=== PATIENT | female | born 1965 | race African-American/Black ===

== ENCOUNTER 2021-07-21 13:31 | Outpatient (CLI) | payer OTHER, SELFPAY ==
--- NOTE | ~2021-07-21 | CT_ITS ---
EXAMINATION: CT abdomen wo con DATE: 07/21/2021 14:01 INDICATION: Incisional hernia TECHNIQUE: Computed tomography (CT) of the abdomen was performed without intravenous contrast. Automa olga exposure control and iterative reconstruction technique were employed. Exam dose: 306.96 mGy-cm total exam DLP. COMPARISON: None. FINDINGS: Minimal dependent right lower lobe basilar atelectasis, mild infiltrate and/or aspiration p neumonitis. The lung bases are otherwise clear. Trace pericardial fluid. Heart size is within normal limits. The liver, spleen, pancreas, adrenal glands and kidneys are unremarkable. No urinary tract calculus o r hydronephrosis is evident. There is a 10.5 cm AP x 14.2 cm transverse dimension midline soft tissue structure extending from the pelvis into the abdomen, extending slightly above the level of the umbilicus; CT pelvis examination is recommended to more definitively evaluate this soft tissue structure. Normal caliber of the abdominal aorta. No intraperitoneal or retroperitoneal mass lesion or adenopath y is noted otherwise. There is a small fat-containing umbilical hernia. There is a left parasagittal supraumbilical fat-containing hernia measuring approximately 4 cm vertic al and 4 centers transverse dimension, up to 3 cm AP dimension. There is some increased density of th e herniated fat which might represent some adipose tissue inflammation or necrosis. No bowel obstruction or intraperitoneal free air. No suspicious osteolytic or osteoblastic lesions. There are severe degenerative changes at the apophyseal joints at L4-5 and L5-S1 with associated mini mal anterolisthesis at L4-5. Mild degenerative disease at L4-5 and L5-S1. IMPRESSION: 3 x 4 x 4 cm supraumbilical left parasagittal fat-containing hernia; some increased dens ity of the fat may indicate fat inflammation or necrosis Small fat-containing umbilical hernia Large midline soft tissue structure extending from the pelvis to slightly above the umbilicus; CT pel vis examination is recommended for further evaluation Minimal right lower lobe basilar dependent atelectasis, mild infiltrate and/or aspiration pneumonitis Reviewed, dictated and finalized at [facility]. Reviewed, dictated and finalized at [facility]. S DRAPER IMPRESSION: 3 x 4 x 4 cm supraumbilical left parasagittal fat-containing herni a; some increased density of the fat may indicate fat inflammation or necrosis Small fat-containing umbilical hernia Large midline soft tissue structure extending from the pelvis to slightly above the umbilicus; CT pelvis examination is recommended for further evaluation Minimal right lower lobe basilar dependent atelectasis, mild infiltrate and/or aspiration pneumonitis
== END 2021-07-21 13:32 | disposition home or self-care (01) ==
LOC: ANHIMG 13:36
PROVIDERS: Visit Provider Surgery
DX: K43.2 Incisional hernia without obstruction or gangrene (principal); K42.9 Umbilical hernia without obstruction or gangrene; R91.8 Other nonspecific abnormal finding of lung field; J98.11 Atelectasis
CPT/HCPCS: 74150

== ENCOUNTER 2021-09-15 13:36 | Outpatient (CLI) | payer OTHER, SELFPAY ==
--- NOTE | 2021-09-15 13:47 | ECG_ITS ---
Measurements Intervals [place] Rate: 70 P: 55 TX: 184 QRS: 5 QRSD: 76 T: 33 QT: 407 QTc: 441 Interpretive Statements SINUS RHYTHM LEFT ATRIAL ENLARGEMENT [-0.15mV P WAVE IN V1/V2] POSSIBLE LEFT VENTRICULAR HYPERTROPHY [VOLTAGE CRITERIA PLUS LAE OR QRS WIDENING] ABNORMAL ECG NO PREVIOUS ECG AVAILABLE FOR COMPARISON Electronically Signed On 09-15-2021 16:04:10 CDT by Dwayne Villeda M.D.
[2021-09-15 14:06] LABS: Basophils Percent Auto 0.5 % (0.2-1.2); Eosinophils Absolute Auto 0.2 K/mm3 (0-0.3); Eosinophils Percent Auto 2.9 % (0-4.4); Hematocrit 41.9 % (37.0-47.0); Hemoglobin 13.2 g/dL (12.0-15.0); Immature Granulocyte Absolute 0.02 K/mm3 (0.00-0.031); Immature Granulocyte Percent A 0.3 % (0-0.5); Lymphocytes Absolute Auto 2.51 K/mm3 (0.9-3.2); Lymphocytes Percent Auto 40.3 % (18.3-44.2); Mean Corpuscular HGB Conc 31.5 g/dl (32-36); Mean Corpuscular Hemoglobin 30.1 pg (26-34); Mean Corpuscular Volume 95.7 fl (80-100); Mean Platelet Volume 11.6 fl (7.4-10.4); Monocytes Absolute Auto 0.4 K/mm3 (0.1-0.6); Monocytes Percent Auto 6.6 % (2.6-8.5); Neutrophils Absolute Auto 3.1 K/mm3 (1.3-6.7); Neutrophils Percent Auto 49.4 % (45.5-73.1); Platelet Count Result 216 k/mm3 (150-375); Red Blood Count 4.38 M/mm3 (4.2-5.4); Red Cell Distribution Width 14.4 % (11.5-14.5); White Blood Count 6.2 K/mm3 (4.5-10.0)
[2021-09-15 14:18] LABS: Alanine Aminotransferase 12 U/L (4-35); Albumin Level 4.4 g/dL (3.5-5.1); Alkaline Phosphatase 83 U/L (38-126); Anion Gap 7 mmol/L (8-16); Aspartate Amino Transferase 25 U/L (14-36); Bilirubin,Total 0.3 mg/dL (0.2-1.3); Blood Urea Nitrogen 14 mg/dL (7-17); Calcium 9.2 mg/dL (8.4-10.2); Carbon Dioxide 26 mmol/L (22-30); Chloride 108 mmol/L (98-107); Estimated Glomerular Filt Rate > 60; Glucose 98 mg/dL (65-110); Sodium 141 mmol/L (137-145)
== END 2021-09-15 13:37 | disposition home or self-care (01) ==
PROVIDERS: Visit Provider Obstetrics & Gynecology
DX: K43.2 Incisional hernia without obstruction or gangrene (principal); D25.9 Leiomyoma of uterus, unspecified; I10 Essential (primary) hypertension; R94.31 Abnormal electrocardiogram [ECG] [EKG]
CPT/HCPCS: 36415; 80053; 85025; 86850; 86900; 86901; 93005

== ENCOUNTER 2021-09-21 12:06 | Inpatient (IN) | payer OTHER, SELFPAY ==
[2021-09-12 15:13] VITALS: BMI 31.7
--- NOTE | 2021-09-12 15:26 | PC.NURSE ---
Addendum entered by Kenna Wright RN 09/12/21 15:30: [facility] SHOWER MORNING OF SURGERY Original Note: Report to the Outpatient Waiting Room, entrance under the green pavilion located off [facility], at time 6:00 on date 09/21/21. OR Time: 7:30. - You and your visitor will be asked a series of questions to screen for COVID 19 for your protection. - A mask is required within the hospital. One visitor will be allowed to accompany the patient into the hospital. Patients visitor will be instructed to remain with patient at all times or leave the building. We will allow the visitor to come back to the postoperative area when patient is ready. Preoperative COVID Testing Requirements: No COVID Test needed if: (proof is required; if not received patient will have Rapid Test prior to entry) - Patient has received COVID Vaccine at least 14 days prior to procedure date or - Patient has positive COVID test result within last 90 days of surgery date. COVID Test needed if above criteria is not met Patients may have clear liquids (water, carbonated beverages, clear teas, apple juice) until 3 hours prior to surgery (4:30) with a maximum of 20 ounces. - No food from midnight until time of surgery Take the following medications with a SIP of water the morning of surgery: AMLODIPINE, SERTRALINE, VALACYCLOVIR Medications to discontinue per physician: VITAMINS/SUPPLEMENTS Date to take last dose: 09/17/21 Please no make-up, nail ghanaian, hairspray, perfume, deodorant, or body powder the day of surgery. No jewelry (including any body piercings) or valuables the day of surgery, leave them at home. Please take a shower or bath the night before, or the morning of, surgery with an antibacterial soap. Wear comfortable, loose fitting clothing. - Jewelry must be removed prior to entering the operating room. Rings and piercings that are not removed may be cut off. - The hospital will not accept responsibility for valuables. - Please leave all valuables, including medications, at home the day of surgery. If you are going home after surgery, a licensed courtesy car driver must drive you home. - NO public transportation without another adult. - We recommend that an adult stay with you for 24 hours following discharge. - We also recommend that you do not drive, make important decision, drink alcoholic beverages, or take any drugs that were not prescribed by your health care provider for at least 24 hours after your discharge time. Follow any additional instructions given to you from your surgeon. Telephone instructions given to DVAID CALIX and asked if any additional questions and then verbalized understanding. Patient advised to call surgeon office or pre surgery nurse liaison [phone] if any additional questions.
--- NOTE | 2021-09-20 09:23 | P.PNAN_ITS ---
Anes - Initial Pre Proc Eval Procedure: Operation Date: 09/21/21 07:30 Proposed Procedures p Total Abdominal Hysterectomy with Bilateral Salpingo-Oophorectomy, - Laurent Morales MD s Laparoscopic Incisional Hernia Repair with Mesh - Leida Izaguirre MD Date/Time: 09/20/21 09:23 Surgeon: Laurent Morales MD Pre Op Diagnosis: Uterine Leiomyoma, incisional hernia Patient Data Age: 56 Gender: F Height: 1.63 m Weight: 83.91 kg Allergies Allergy/AdvReac Type Severity Reaction Status Date / Time No Known Allergies Allergy Unknown Verified 09/12/21 15:11 Home Medications Medication Instructions Recorded Confirmed Type sertraline 100 mg tablet 100 mg PO DAILY 07/05/21 09/12/21 History valacyclovir 500 mg tablet 500 mg PO DAILY 07/05/21 09/12/21 History amlodipine 10 mg PO DAILY 09/12/21 09/12/21 History multivitamin with folic acid 1 tablet PO DAILY 09/12/21 09/12/21 History [Tab-A-Mark] Results Review: All pre-operative results and documents have been reviewed as part of the pre-operative evaluation. [facility] Past Medical History Medical History (Updated 09/20/21 @ 09:23 by Andrea Garnica MD) Depression Diabetes Hypertension Ovarian cancer Surgical History Surgical History History of Family History Family History Father Heart disease Mother Kidney stones Other Hypertension Social History Social History Smoking status: Never smoker Alcohol intake: current Drinks per week: 28 Alcohol use details: BEER Substance use: current Substance use type: marijuana Additional living arrangements comments: SON Spiritual care concerns: No Anes - Eval Final PreProcedure Day of Procedure 09/20/21 09:23 Results Review: All pre-operative results and documents have been reviewed as part of the pre-operative evaluation. Informed Consent: The patient's anesthetic plan and its attendant risks and benefits were discussed with the patient/family/POA. Questions were solicited and answers provided to the satisfaction of the patient/family/POA.
--- NOTE | 2021-09-20 12:03 | PCCCNOTE ---
Called Dr. Morales office to clarify admission status; office personnel stated that Auth# [id number] is for inpt status.
[2021-09-21] VITALS (13 sets, daily range): BP systolic 126–171; BP diastolic 67–89; PULSE 61–85; RESP 12–20; TEMP 36.4–36.6; O2SAT 97–100
[2021-09-21] MEDS: LACTATED RINGERS 1,000 ML 30 ML IV CONT ×3 (06:45→10:48)
[2021-09-21] MEDS: ACETAMINOPHEN 500 MG TABLET 1000 MG PO (06:48)
[2021-09-21] MEDS: KETOROLAC 15 MG/ML VIAL (*BKC) IV PUSH (06:48)
--- NOTE | 2021-09-21 06:48 | P.PNAN_ITS ---
Anes - Initial Pre Proc Eval Procedure: Operation Date: 09/21/21 07:30 Proposed Procedures p Total Abdominal Hysterectomy with Bilateral Salpingo-Oophorectomy, - Laurent Morales MD s Open Incisional Hernia Repair with Mesh - Leida Izaguirre MD Date/Time: 09/21/21 06:48 Surgeon: Laurent Morales MD Pre Op Diagnosis: Uterine Leiomyoma, incisional hernia Patient Data Age: 56 Gender: F Height: 1.63 m Weight: 83.91 kg Allergies Allergy/AdvReac Type Severity Reaction Status Date / Time No Known Allergies Allergy Unknown Verified 09/12/21 15:11 Home Medications Medication Instructions Recorded Confirmed Type sertraline 100 mg tablet 100 mg PO DAILY 07/05/21 09/12/21 History valacyclovir 500 mg tablet 500 mg PO DAILY 07/05/21 09/12/21 History amlodipine 10 mg PO DAILY 09/12/21 09/12/21 History multivitamin with folic acid 1 tablet PO DAILY 09/12/21 09/12/21 History [Tab-A-Mark] Patient hx anesthesia problems: none Family hx anesthesia problems: none Results Review: All pre-operative results and documents have been reviewed as part of the pre-operative evaluation. [facility] Past Medical History Medical History Depression Diabetes Hypertension Ovarian cancer Surgical History Surgical History History of Family History Family History Father Heart disease Mother Kidney stones Other Hypertension Social History Social History Smoking status: Never smoker Alcohol intake: current Drinks per week: 28 Alcohol use details: BEER Substance use: current Substance use type: marijuana Living arrangements: with family Additional living arrangements comments: SON Spiritual care concerns: No Anes - Eval Final PreProcedure Day of Procedure 09/21/21 06:48 Patient weight: obese Heart: regular rate and rhythm Lungs: clear to auscultation Airway: Mallampati scale class II Neurological: alert and oriented Last oral intake: >/= 8 hours ASA classification: III Emergent: no Anesthetic plan: proceed Anesthesia type and monitoring: general ETT and standard monitoring Results Review: All pre-operative results and documents have been reviewed as part of the pre-operative evaluation. Informed Consent: The patient's anesthetic plan and its attendant risks and benefits were discussed with the patient/family/POA. Questions were solicited and answers provided to the satisfaction of the patient/family/POA.
[2021-09-21 06:53] LABS: Glucose Point of Care 91 mg/dl (65-105)
--- NOTE | 2021-09-21 07:02 | PM.IMHP ---
H&P: HPI History of Present Illness Date/Time: 09/21/21 07:02 This patient is a 56-year-old female with a very large uterus. It is 20 cm in length. It causes great pelvic pain and pressure. Also has mass effect on the rectum and may contribute to a painful paraumbilical hernia. We have agreed to perform total abdominal hysterectomy and bilateral salpingo-oophorectomy. This will be done in conjunction with a hernia repair. She understands the procedure. She understands the risks. She understands the risks includes injury to surrounding anatomy. She understands injuries could result in hospitalization, more surgery, severe illness. She understands risk of hemorrhage and infection. Chief Complaint: abdominal and pelvic pain Review of Systems Review of Systems: All systems reviewed & are unremarkable except as noted in HPI and below Constitutional: Constitutional: Denies chills, Denies fatigue, Denies fever(s) and Denies weakness Eyes: Eyes: Denies blurry vision, Denies change in vision, Denies loss of peripheral vision, Denies loss of vision, Denies other visual disturbances and Denies eye pain ENT: Denies vertigo, Denies dizziness, Denies hearing loss, Denies mouth pain, Denies nasal obstruction, Denies neck mass and Denies neck pain Cardiovascular: Cardiovascular: Denies chest pain, Denies diaphoresis, Denies syncope, Denies leg edema and Denies dyspnea Respiratory: Respiratory: Denies chest congestion, Denies cough, Denies hemoptysis, Denies dyspnea and Denies wheezing Gastrointestinal: Gastrointestinal: Denies abdominal pain, Denies constipation, Denies diarrhea, Denies nausea and Denies vomiting Genitourinary: Genitourinary: Denies hematuria, Denies change in libido, Denies nocturia, Denies genital lesions, Denies flank pain and Denies urinary urgency Musculoskeletal: Musculoskeletal: Denies abnormal gait, Denies back pain, Denies myalgias, Denies arthralgias, Denies joint swelling, Denies muscle weakness and Denies neck pain Integumentary/Breasts: Skin/Breast: Denies swelling, Denies breast pain, Denies breast mass, Denies dry skin, Denies nipple discharge, Denies unusual bruising and Denies jaundice Neurologic: Denies Neuro-related abnormal movements, Denies Abnormal speech present, Denies abnormal gait, Denies behavioral changes, Denies confusion, Denies vertigo, Denies dizziness, Denies syncope, Denies loss of vision, Denies memory loss, Denies convulsions and Denies weakness Psychiatric: Psychiatric: Denies abnormal sleep pattern, Denies behavioral changes, Denies change in libido, Denies confusion, Denies depression, Denies anhedonia and Denies memory loss Endocrine: Endocrine: Reports no additional endocrine complaints, Denies change in libido and Denies fatigue Hematologic/Lymphatic: Hematologic/Lymphatic: Reports no additional hematologic/lymphatic complaints Allergic/Immunologic: Allergic/Immunologic: Reports no additional allergic/immunologic complaints and Denies wheezing PMFSH Past Medical History Medical History Depression Diabetes Hypertension Ovarian cancer Surgical History Surgical History History of Family History Family History Father Heart disease Mother Kidney stones Other Hypertension Social History Social History Smoking status: Never smoker Alcohol intake: current Drinks per week: 28 Alcohol use details: BEER Substance use: current Substance use type: marijuana Living arrangements: with family Additional living arrangements comments: SON Spiritual care concerns: No Meds Home Medications and Allergies Home Medications Medication Instructions Recorded Confirmed Type sertraline 100 mg tablet 100
--- NOTE | 2021-09-21 07:06 | WPDHPUPDATE1 ---
History and Physical Update Update Date/Time: 09/21/21 07:06 History and Physical has been reviewed, including an updated exam of the patient. There are NO changes in the patient's condition. Risks, benefits, and alternatives have been discussed and questions answered. Patient agrees to proceed with procedure.
[2021-09-21] MEDS: SCOPOLAMINE 1.5 MG PATCH TRANSDERM (07:17)
--- NOTE | 2021-09-21 07:22 | PM.IMHP ---
H&P: HPI History of Present Illness Date/Time: 09/21/21 07:22 Naomie is a 56 y/o female who presents to our office at the request of Debby Petty MD with complaints of an umbilical bulge. She states this bulge has been present for about 5 years. She states she also experiences pain to the area. She states the bulge is reducible. She also complains of a knot on her chest that has been present for the past month. She states the area is painful to the touch. Patient is to undergo fibroid removal from uterus by Dr. Morales. They would like to coordinate surgery. Chief Complaint: incisional hernia Review of Systems Review of Systems: All systems reviewed & are unremarkable except as noted in HPI and below PMFSH Past Medical History Medical History (Updated 09/21/21 @ 07:24 by Leida Izaguirre MD) Depression Diabetes Hypertension Ovarian cancer Surgical History Surgical History History of Family History Family History Father Heart disease Mother Kidney stones Other Hypertension Social History Social History Smoking status: Never smoker Alcohol intake: current Drinks per week: 28 Alcohol use details: PALAK Substance use: current Substance use type: marijuana Living arrangements: with family Additional living arrangements comments: SON Spiritual care concerns: No Meds Home Medications and Allergies Home Medications Medication Instructions Recorded Confirmed Type sertraline 100 mg tablet 100 mg PO DAILY 07/05/21 09/21/21 History valacyclovir 500 mg tablet 500 mg PO DAILY 07/05/21 09/21/21 History amlodipine 10 mg PO DAILY 09/12/21 09/21/21 History multivitamin with folic acid 1 tablet PO DAILY 09/12/21 09/21/21 History [Tab-A-Mark] Allergies Allergy/AdvReac Type Severity Reaction Status Date / Time No Known Allergies Allergy Unknown Verified 09/21/21 07:02 Vital Signs Vital Signs - 24 hr 09/21/21 07:05 Temperature 36.5 C Pulse Rate 61 Respiratory Rate 18 Blood Pressure 171/89 H Pulse Oximetry 98 Exam Const: General: cooperative, comfortable and no acute distress Nutritional Appearance: obese Orientation/consciousness: patient oriented x3 Limitations: no limitations Resp: Effort & Inspection: normal respiratory effort Auscultation: clear to auscultation bilaterally Cardio: Rate: regular rate Rhythm: regular rhythm GI: Inspection: normal to inspection and non-distended GI Palp: Yes Soft to palpation, No Tenderness to palpation present (GI), No Guarding due to palpation present (GI), No Rigid due to palpation and Yes Hernia present Other: supraumbilical ventral hernia - soft, mild TTP Assessment and Plan Assessment and plan (1) Incisional hernia: Qualifiers: Obstruction and gangrene presence: without obstruction or gangrene Qualified Code(s): K43.2 - Incisional hernia without obstruction or gangrene Code(s): K43.2 - Incisional hernia without obstruction or gangrene Status: Acute Assessment and Plan: will setup for open repair concurrent c open hysterectomy (2) Smoker: Code(s): F17.200 - Nicotine dependence, unspecified, uncomplicated Status: Acute Assessment and Plan: smoking cessation discussed (3) BMI 32.0-32.9,adult: Code(s): Z68.32 - Body mass index [BMI] 32.0-32.9, adult Status: Acute Assessment and Plan: lifestyle and dietary modifications
--- NOTE | 2021-09-21 07:25 | WPDHPUPDATE1 ---
History and Physical Update Update Date/Time: 09/21/21 07:25 History and Physical has been reviewed, including an updated exam of the patient. There are NO changes in the patient's condition. Risks, benefits, and alternatives have been discussed and questions answered. Patient agrees to proceed with procedure.
[2021-09-21] MEDS: ceFAZolin 2 GM/D5W 50 ML 2 GM/50 ML BAG IVPB (07:29)
[2021-09-21] MEDS: METHYLENE BLUE 0.5% INJ 10 ML AMPULE 5 ML IRRIGATION (10:06)
--- NOTE | 2021-09-21 10:34 | SUR.OPER ---
Dr Izaguirre in room at 10:07 for his portion of the procedure. Time out performed at 10:10 with surgical team and surgeon. Dr Izaguirre started at 10:11.
--- NOTE | 2021-09-21 10:46 | W.PM.PROC2 ---
Procedure Note - Detailed Date of Procedure 09/21/21 Pre-op Diagnosis Uterine Leiomyoma, incisional hernia Post-op Diagnosis Same (Intra-abdominal adhesions) Procedure Performed Supracervical hysterectomy and right salpingo-oophorectomy with 1 hour of Adhesiolysis. This case was done in conjunction with Dr. Izaguirre. He performed a hernia repair after the hysterectomy. Surgeon Laurent Morales MD Anesthesia General Indications Abdominal and pelvic pain. Findings 21 cm fibroid uterus compressing the rectum and extending into the upper abdomen. Adhesions throughout the abdomen and pelvis. Adhesions between small intestine anterior abdominal wall, small intestine and colon, intestine both large and small to the uterus. Adnexal structures adherent to all the surrounding organs. Description of Procedure The patient was taken the operating room. She was prepped and draped in the dorsal supine position after induction of general anesthesia. A vertical incision was made from above the umbilicus around the umbilicus and down to the pubic symphysis at the midline. This was carried down to the level of the fascia the knife. The abdominal cavity was entered and the fascial incision was extended superior and inferiorly with good visualization of the bladder. The uterus was exteriorized. Extensive adhesiolysis was performed throughout this portion of the procedure leading up to the exterior is a urban of the uterus. Adhesions were from the anterior abdominal wall, adhesions was from the uterus. With the uterus exteriorized the uterine artery clamped cauterized transected. The para uterine in paracervical tissue was clamped transected and suture ligated stepwise fashion with Jcarlos clamps. This was performed on the level the cervix. Cervix was then transected. The uterus was amputated. The cut surface of the cervix was cauterized. The ureters were then dissected out they were examined. They extended well away from the surgically affected areas. While the bladder was being from the anterior surface of the uterus. A defect the bladder was created. The tissues were unidentifiable as distinct organs. Through most of the case distinct organ margins could not be identified due to adhesions and diffuse scar tissue throughout the abdomen and pelvis. The defect in the bladder was repaired. Imbricating layers 3-0 Vicryl were placed near the lumen of the bladder and 2 0 Vicryl used to firmly close and imbricate the bladder over the defect. The bladder was filled with dye colored saline and was found to be intact at the end of the closure. There were 2 areas on the small intestine and rectum that I asked Dr. Izaguirre to look at. He was in the room at the end of the case. And at this point he took over and performed the hernia repair and the closure of the wound. Estimated Blood Loss 400 Drains No Packing No Pathology Yes Complications Other complications (Incidental cystotomy) Condition Stable Disposition Floor
--- NOTE | 2021-09-21 10:50 | W.PM.PROC2 ---
Procedure Note - Detailed Date of Procedure 09/21/21 Pre-op Diagnosis Uterine Leiomyoma, incisional hernia, serosal tears in ileum, distal sigmoid colon Post-op Diagnosis Same Procedure Performed exploratory laparotomy, GRISELDA, repair of serosal tears in proximal ileum, distal sigmoid colon, primary repair of incisional hernia Surgeon Leida Izaguirre MD Anesthesia General Indications 56-year-old female presenting with supraumbilical incisional hernia, large uterine fibroid. The patient underwent open hysterectomy by Dr. Morales, please see full operative report for his procedure. After his procedure was completed, there was noted to be serosal tears in the proximal ileum and distal sigmoid colon. Findings moderate sized supraumbilical incisional hernia, smaller umbilical hernia, serosal tears and proximal ileum and distal sigmoid Description of Procedure The patient was in the supine position and was under general anesthesia from previous open hysterectomy by Dr. Morales. Please see his full operative report for details of his procedure. A time-out was then done to verify the patient's identity as well as the procedure being performed. I began by examining the abdominal contents. There was still noted to be adhesions to the fascia posterior as well as a hernia sac in the supraumbilical and umbilical regions. Upon running the intestine, there was noted to be serosal tears in the proximal ileum and distal sigmoid colon. I went ahead and repaired the stairs using interrupted 3-0 silk sutures. I then did a lysis of adhesions to clear the fascia both anteriorly and posterior. I then dissected out the 2 hernia sacs in the supraumbilical and umbilical region. The larger hernia was the supraumbilical incisional hernia, which measured approximately 4 x 3 cm. Once I was able to dissect these areas out and take down the adhesions, the decision was made for primary repair given the hysterectomy. I copiously washed out the abdominal cavity, no other obvious pathology was noted. I went ahead and closed the midline fascia encompassing the hernia defects using 0 looped PDS suture x2. The skin was then closed with skin irma. The patient tolerated the procedure well and was extubated in the operating room postoperative. She will be transferred to the recovery room in stable condition. Estimated Blood Loss 10 Drains No Packing No Pathology None sent Complications No immediate complications Condition Stable Disposition PACU
[2021-09-21] MEDS: fentaNYL CITRATE INJ (*CRX) 100 MCG/2 ML VIAL 25 MCG IV PUSH ×6 (11:00→11:53)
[2021-09-21] MEDS: ONDANSETRON INJ 4 MG/2 ML VIAL IV PUSH (11:12)
--- NOTE | 2021-09-21 12:15 | PC.NURSE ---
Pt. arrived on unit per bed and placed in room 289, call light within reach. Pt. oriented to room, plan of care discussed, pt. verbalizes understanding.
[2021-09-21] MEDS: MORPHINE SULFATE (*CRX) 4 MG/ML INJ IV PUSH ×2 (12:51→23:16)
[2021-09-21] MEDS: SODIUM CHLORIDE 0.9% IV 1,000 ML 125 ML IV CONT ×2 (12:51→20:11)
[2021-09-21 12:58] LABS: Glucose Point of Care 183 mg/dl (65-105)
[2021-09-21 14:29] LABS: Glucose Point of Care 199 mg/dl (65-105)
[2021-09-21 15:23] LABS: Glucose Point of Care 177 mg/dl (65-105)
[2021-09-21] MEDS: IBUPROFEN 600 MG TABLET PO (17:42)
[2021-09-21 17:49] LABS: Glucose Point of Care 173 mg/dl (65-105)
[2021-09-21] MEDS: HYDROcodone/acetaminophen (*CRX) 10-325 MG TABLET 1 TAB PO (20:09)
[2021-09-22] MEDS: HYDROcodone/acetaminophen (*CRX) 10-325 MG TABLET 1 TAB PO ×3 (04:35→13:23)
[2021-09-22] MEDS: IBUPROFEN 600 MG TABLET PO ×2 (04:35→13:23)
[2021-09-22 04:44] VITALS: BP 142/82; PULSE 91; RESP 18; TEMP 36.9; O2SAT 100
[2021-09-22 04:58] LABS: Glucose Point of Care 134 mg/dl (65-105)
[2021-09-22 05:43] LABS: Basophils Percent Auto 0.3 % (0.2-1.2); Hematocrit 30.5 % (37.0-47.0); Hemoglobin 10.3 g/dL (12.0-15.0); Immature Granulocyte Absolute 0.04 K/mm3 (0.00-0.031); Immature Granulocyte Percent A 0.3 % (0-0.5); Lymphocytes Absolute Auto 1.63 K/mm3 (0.9-3.2); Lymphocytes Percent Auto 14.1 % (18.3-44.2); Mean Corpuscular HGB Conc 33.8 g/dl (32-36); Mean Corpuscular Hemoglobin 30.6 pg (26-34); Mean Corpuscular Volume 90.5 fl (80-100); Mean Platelet Volume 12.2 fl (7.4-10.4); Monocytes Absolute Auto 0.9 K/mm3 (0.1-0.6); Monocytes Percent Auto 7.8 % (2.6-8.5); Neutrophils Percent Auto 77.5 % (45.5-73.1); Platelet Count Result 185 k/mm3 (150-375); Red Blood Count 3.37 M/mm3 (4.2-5.4); Red Cell Distribution Width 14.1 % (11.5-14.5); White Blood Count 11.6 K/mm3 (4.5-10.0)
--- NOTE | 2021-09-22 07:40 | PM.GYNPNOP ---
REGULATORY AFFAIRS MANAGER - A/P Assessment and plan (1) Cystostomy status: Code(s): Z93.50 - Unspecified cystostomy status Status: Acute (2) Incisional hernia: Qualifiers: Obstruction and gangrene presence: without obstruction or gangrene Qualified Code(s): K43.2 - Incisional hernia without obstruction or gangrene Code(s): K43.2 - Incisional hernia without obstruction or gangrene Status: Acute (3) Uterine myoma: Qualifiers: Uterine leiomyoma location: unspecified location Qualified Code(s): D25.9 - Leiomyoma of uterus, unspecified Code(s): D25.9 - Leiomyoma of uterus, unspecified Status: Acute (4) Abdominal pain: Qualifiers: Abdominal location: periumbilical Qualified Code(s): R10.33 - Periumbilical pain Code(s): R10.9 - Unspecified abdominal pain Status: Acute (5) Post-operative state: Code(s): Z98.890 - Other specified postprocedural states Status: Acute Assessment and Plan: THis patient is a 56 yo female POD # 1 KOTA / RSO with adhesiolysis and incidental cystotomy. Also open hernia repair. Doing well. Catheter for one week. advance diet today, pain controlled Postoperative Procedures: Procedures Operation Date: 09/21/21 07:30 Actual Procedure Side Surgeon p Supracervical Hysterectomy, Adhesiolysis with Right-Oophorectomy, Incidental bladder repair Bilateral Laurent Morales MD s Open Incisional Hernia Repair Not Applicable Leida Izaguirre MD Postoperative day: 1 Postoperative status: doing well Postoperative plan: see orders Time Spent With Patient Time: Total time spent is greater than 50% in coordination of care (as documented) at patient's floor/unit and/or counseling patient: Time with patient: less than 15 minutes REGULATORY AFFAIRS MANAGER- PN:Subj Post-Op Subjective Date/time seen: 09/22/21 07:40 Subjective: patient reports feeling better, patient has no complaints and pain is well controlled Exam Const: General: healthy appearing, comfortable and no acute distress Resp: Auscultation: clear to auscultation bilaterally, no rales, no rhonchi and no wheezes Cardio: Rate: regular rate Heart sounds: no click, no murmurs and no rubs GI: Inspection: non-distended Auscultation: normal bowel sounds Extrem: General: normal to inspection, no pedal edema and no calf tenderness REGULATORY AFFAIRS MANAGER - PN: Obj Data Vital Signs Vital Signs: Vital Signs - 24 hr 09/21/21 10:48 09/21/21 11:00 09/21/21 11:15 Temperature 97.5 F L Pulse Rate 70 75 70 Respiratory Rate 20 12 18 Blood Pressure 138/67 129/68 131/70 Pulse Oximetry 100 100 100 09/21/21 11:30 09/21/21 11:45 09/21/21 12:00 Temperature Pulse Rate 71 70 73 Respiratory Rate 18 16 20 Blood Pressure 126/69 141/70 H 135/75 Pulse Oximetry 100 99 100 09/21/21 12:15 09/21/21 12:35 09/21/21 15:00 Temperature 97.6 F 97.6 F Pulse Rate 67 67 73 Respiratory Rate 18 18 20 Blood Pressure 142/77 H 147/82 H Pulse Oximetry 100 100 100 09/21/21 17:45 09/21/21 20:00 09/21/21 23:15 Temperature 97.9 F 97.9 F Pulse Rate 80 85 Respiratory Rate 18 18 16 Blood Pressure 138/79 140/81 Pulse Oximetry 100 97 100 09/22/21 04:44 Temperature 98.4 F Pulse Rate 91 Respiratory Rate 18 Blood Pressure 142/82 H Pulse Oximetry 100 Intake/Output Intake/Output: Intake & Output 09/19/21 09/20/21 09/21/21 09/22/21 23:59 23:59 23:59 23:59 Intake Total 1690 1300 Output Total 1770 1500 Balance -80 -200 Meds/Results Medications: Active Medications Generic Name Dose Route Start Last Admin Trade Name Freq PRN Reason Stop Dose Admin Hydrocodone Bitart/Acetaminophen 1 tab 09/21/21 12:06 09/22/21 04:35 Hydrocodone/Acetaminophen (*Crx) 10-325 Mg Tablet PO 1 tab Q3H PRN Administration Pain Rated 6 or Greater Hydrocodone Bitart/Acetaminophen 1 tab 09/21/21 12:06 Hydrocodone/Acetaminophen (*Crx) 5-325 Mg Tablet PO Q3H PRN Pain Rated 5 or Less Amlodipine
[2021-09-22] MEDS: SERTRALINE HCL 50 MG TABLET 100 MG PO (07:46)
[2021-09-22] MEDS: amLODIPine BESYLATE 5 MG TABLET 10 MG PO (07:46)
[2021-09-22 08:00] VITALS: BP 146/77; PULSE 89; RESP 18; TEMP 37.2; O2SAT 98
--- NOTE | 2021-09-22 08:56 | WPDANESPN ---
Anes - Prog Note Post-Op Date/Time: 09/22/21 08:56 Cardiovascular status: normal Respiratory status: normal Airway patency: baseline Mental status: baseline Post-Op hydration status: normal Vital Signs: Last Vital Signs Temp 36.9 C 09/22/21 04:44 Pulse 91 09/22/21 04:44 Resp 18 09/22/21 04:44 BP 142/82 H 09/22/21 04:44 Pulse Ox 100 09/22/21 04:44 Pain Score (VAS): 0 I/O: Intake & Output 09/21/21 09/22/21 09/22/21 23:59 07:59 15:59 Intake Total 1240 1300 Output Total 750 1500 Balance 490 -200 Laboratory Tests 09/22/21 04:44 09/21/21 09/21/21 09/21/21 11:36 12:53 15:15 WBC RBC Hgb Hct MCV MCH MCHC RDW Plt Count MPV Immature Gran % (Auto) Neut % (Auto) Lymph % (Auto) [place] % (Auto) Eos % (Auto) Baso % (Auto) Lymph # (Auto) [place] # (Auto) Eos # (Auto) Baso # (Auto) Abs Immat Gran (auto) Absolute Neuts (auto) Absolute Nucleated RBC Nucleated RBC % POC Capillary Glucose 199 H 183 H 177 H 09/21/21 09/22/21 09/22/21 17:44 04:44 04:53 WBC 11.6 H RBC 3.37 L Hgb 10.3 L Hct 30.5 L MCV 90.5 D MCH 30.6 MCHC 33.8 RDW 14.1 Plt Count 185 MPV 12.2 H Immature Gran % (Auto) 0.3 Neut % (Auto) 77.5 H Lymph % (Auto) 14.1 L [place] % (Auto) 7.8 Eos % (Auto) 0.0 Baso % (Auto) 0.3 Lymph # (Auto) 1.63 [place] # (Auto) 0.9 H Eos # (Auto) 0.0 Baso # (Auto) 0.0 Abs Immat Gran (auto) 0.04 H Absolute Neuts (auto) 9.0 H Absolute Nucleated RBC 0.0 Nucleated RBC % 0.0 POC Capillary Glucose 173 H 134 H Post-procedural complaints: none Patient Feedback: Patient satisfied with anesthetic care.
[2021-09-22] MEDS: HYDROcodone/acetaminophen (*CRX) 5-325 MG TABLET 1 TAB PO (17:25)
[2021-09-22] MEDS: SIMETHICONE 80 MG TAB.CHEW PO (17:26)
[2021-09-22 20:15] VITALS: BP 143/85; PULSE 97; RESP 16; TEMP 36.9
[2021-09-22 20:20] LABS: Glucose Point of Care 121 mg/dl (65-105)
[2021-09-23 07:55] VITALS: BP 150/94; PULSE 95; RESP 20; TEMP 37.6; O2SAT 98
--- NOTE | 2021-09-23 08:20 | PM.GYNPNOP ---
PCTS - A/P Assessment and plan (1) Post-operative state: Code(s): Z98.890 - Other specified postprocedural states Status: Acute Assessment and Plan: no complaints, DM and HTN stable, to continue Obs. 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 Diabetes mellitus complication status: without complication Qualified Code(s): E11.9 - Type 2 diabetes mellitus without complications Code(s): E11.9 - Type 2 diabetes mellitus without complications Status: Acute Postoperative Procedures: Procedures Operation Date: 09/21/21 07:30 Actual Procedure Side Surgeon p Supracervical Hysterectomy, Adhesiolysis with Right-Oophorectomy, Incidental bladder repair Bilateral Laurent Morales MD s Open Incisional Hernia Repair Not Applicable Leida Izaguirre MD Postoperative day: 2 Postoperative status: doing well Postoperative plan: see orders Time Spent With Patient Time: Total time spent is greater than 50% in coordination of care (as documented) at patient's floor/unit and/or counseling patient: Time with patient: less than 15 minutes PCTS- PN:Subj Post-Op Subjective Date/time seen: 09/23/21 08:20 Subjective: patient reports feeling better, patient has no complaints and pain is well controlled Exam Const: General: healthy appearing, comfortable and no acute distress Resp: Auscultation: clear to auscultation bilaterally, no rales, no rhonchi and no wheezes Cardio: Rate: regular rate Heart sounds: no click, no murmurs and no rubs GI: Inspection: non-distended Auscultation: normal bowel sounds Extrem: General: normal to inspection, no pedal edema and no calf tenderness PCTS - PN: Obj Data Vital Signs Vital Signs: Vital Signs - 24 hr 09/22/21 20:15 Temperature 98.5 F Pulse Rate 97 Respiratory Rate 16 Blood Pressure 143/85 H Intake/Output Intake/Output: Intake & Output 09/20/21 09/21/21 09/22/21 09/23/21 23:59 23:59 23:59 23:59 Intake Total 1690 1500 Output Total 1770 4040 900 Balance -80 950 -900 Meds/Results Medications: Active Medications Generic Name Dose Route Start Last Admin Trade Name Freq PRN Reason Stop Dose Admin Hydrocodone Bitart/Acetaminophen 1 tab 09/21/21 12:06 09/22/21 13:23 Hydrocodone/Acetaminophen (*Crx) 10-325 Mg Tablet PO 1 tab Q3H PRN Administration Pain Rated 6 or Greater Hydrocodone Bitart/Acetaminophen 1 tab 09/21/21 12:06 09/22/21 17:25 Hydrocodone/Acetaminophen (*Crx) 5-325 Mg Tablet PO 1 tab Q3H PRN Administration Pain Rated 5 or Less Amlodipine Besylate 10 mg 09/22/21 09:00 09/22/21 07:46 Amlodipine Besylate 5 Mg Tablet PO 10 mg DAILY DENNIS Administration Diphenhydramine HCl 25 mg 09/22/21 17:24 Diphenhydramine Hcl Cap 25 Mg Capsule PO Q6H PRN Itching Ibuprofen 600 mg 09/21/21 12:06 09/22/21 13:23 Ibuprofen 600 Mg Tablet PO 600 mg Q6H PRN Administration Cramping Morphine Sulfate 4 mg 09/21/21 12:06 09/21/21 23:16 Morphine Sulfate (*Crx) 4 Mg/Ml Inj IV PUSH 4 mg Q4H PRN Administration Pain Rated 7-10 Naloxone HCl 0.1 mg 09/21/21 12:06 Naloxone Hcl 0.4 Mg/Ml Vial IV PUSH Q2M PRN Respiratory rate less than 10 Ondansetron HCl 4 mg 09/21/21 12:06 Ondansetron Inj 4 Mg/2 Ml Vial IV PUSH Q6H PRN Nausea Sertraline HCl 100 mg 09/22/21 09:00 09/22/21 07:46 Sertraline Hcl 50 Mg Tablet PO 100 mg DAILY DENNIS Administration Simethicone 80 mg 09/21/21 12:06 09/22/21 17:26 Simethicone 80 Mg Tab.Chew PO 80 mg Q2H P
[2021-09-23 08:31] LABS: Glucose Point of Care 127 mg/dl (65-105)
[2021-09-23] MEDS: amLODIPine BESYLATE 5 MG TABLET 10 MG PO (10:08)
[2021-09-23] MEDS: IBUPROFEN 600 MG TABLET PO (10:09)
[2021-09-23] MEDS: SERTRALINE HCL 50 MG TABLET 100 MG PO (10:09)
[2021-09-23 12:35] VITALS: BP 158/79; PULSE 98; RESP 16; TEMP 37.3; O2SAT 99
[2021-09-23 18:40] VITALS: BP 144/96; PULSE 98; RESP 16; TEMP 36.8
[2021-09-24 08:00] VITALS: BP 138/94; PULSE 104; RESP 16; TEMP 36.8; O2SAT 99
[2021-09-24] MEDS: IBUPROFEN 600 MG TABLET PO (08:05)
[2021-09-24] MEDS: SERTRALINE HCL 50 MG TABLET 100 MG PO (08:10)
[2021-09-24] MEDS: amLODIPine BESYLATE 5 MG TABLET 10 MG PO (08:10)
--- NOTE | 2021-09-24 11:39 | PM.DS ---
DS: Admitting Diagnosis Discharge Date September 24, 2021 Admitting Diagnosis uterine fibroids, periumbilical hernia. DS: Discharge Diagnosis Discharge Diagnosis (1) Uterine myoma: Qualifiers: Uterine leiomyoma location: unspecified location Qualified Code(s): D25.9 - Leiomyoma of uterus, unspecified Code(s): D25.9 - Leiomyoma of uterus, unspecified Status: Acute (2) Incisional hernia: Qualifiers: Obstruction and gangrene presence: without obstruction or gangrene Qualified Code(s): K43.2 - Incisional hernia without obstruction or gangrene Code(s): K43.2 - Incisional hernia without obstruction or gangrene Status: Acute (3) Abdominal pain: Qualifiers: Abdominal location: periumbilical Qualified Code(s): R10.33 - Periumbilical pain Code(s): R10.9 - Unspecified abdominal pain Status: Acute (4) Diabetes: Qualifiers: Diabetes mellitus type: type 2 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 Diabetes mellitus complication status: without complication Qualified Code(s): E11.9 - Type 2 diabetes mellitus without complications Code(s): E11.9 - Type 2 diabetes mellitus without complications Status: Acute (5) Hypertension: Qualifiers: Hypertension type: primary hypertension Qualified Code(s): I10 - Essential (primary) hypertension Code(s): I10 - Essential (primary) hypertension Status: Acute (6) Post-operative state: Code(s): Z98.890 - Other specified postprocedural states Status: Acute DS: Summary Hospital Course Hospital Course: This patient is a 56-year-old female who was admitted the hospital for surgery. She had a total abdominal hysterectomy/RSO, adhesiolysis, hernia repair, repair of serosal tear. She has been recovering normally since. Her hospital course was unremarkable. She was ambulating, tolerating p.o., passing flatus, walking at appropriate times. She was afebrile her pain was well controlled throughout her stay. She is discharged on postoperative day 3. Time Spent with Patient Time attestation: Total time spent providing and/or coordinating discharge services: DS: Data Data Completed and Pending Completed studies during hospitalization: Pending at discharge 09/21/21 10:38 Surgical [PTH] Routine Discharge Plan Discharge Discharging Clinician: Laurent Morales Patient Disposition: Home, Self-Care Activity: pelvic rest Diet: regular Discharge Instructions: Remove the Scopolamine patch that was placed behind your ear in 72 hours or less. Wash your hands after touching. Stand Alone Forms: General Discharge Instructions Follow-up/Referrals: Laurent Morales MD [Physician] - Discharge Medications: New hydrocodone-acetaminophen 5-325 mg tablet 1 tablet PO Q4H PRN (Reason: pain) Qty: 25 RF: 0 Continued sertraline 100 mg tablet 100 mg PO DAILY RF: 0 valacyclovir 500 mg tablet 500 mg PO DAILY RF: 0 multivitamin with folic acid [Tab-A-Mark] 400 mcg tablet 1 tablet PO DAILY RF: 0 amlodipine 10 mg tablet 10 mg PO DAILY RF: 0 Date of admission: 09/21/21 12:06 Primary Care Provider: PHYSICIAN,EMERGENCY ROOM PHYSICIAN ASSISTANT Admitting Provider: Laurent Morales Attending physician on admission: Laurent Morales Condition: Stable
--- NOTE | 2021-09-24 13:40 | PC.NURSE ---
1230- Went over pt's discharge instructions with her. Verbalizes understanding with no questions. Pt states her daughter is on her way to pick her up. Instructed pt to call out when she gets dressed and when her daughter gets here and we will walk her out. 1340- Pt was seen in the lui, walking out with her daughter. Pt states she feels like she going to pass out. I brought a wheelchair to her. Pt passed out while getting her in the wheelchair. Pt diaphoretic. Ammonia used. Cool rag placed on forehead. 1345- Pt transferred to bed. Vital signs taken. 139/77, 102, 99%, 97.4. Pt states she hasn't had an appetite today and hasn't eaten. Now feels nauseated. 1348- BS 161. 1353- Called Dr. Morales. Updated him on pt's condition, vital signs. Orders received for Zofran PO and continue to monitor pt. No further orders. 1400- Gave pt Jell-O and applesauce. Tolerated well. Also ordered soup and mashed potatoes, per pt request. Will walk in the halls after eating and continue to monitor.
[2021-09-24 13:45] VITALS: BP 139/77; PULSE 102; RESP 18; TEMP 36.3; O2SAT 99
[2021-09-24 13:52] LABS: Glucose Point of Care 161 mg/dl (65-105)
[2021-09-24] MEDS: ONDANSETRON HCL ODT 4 MG TABLET PO (14:12)
[2021-09-24] MEDS: LACTATED RINGERS 1,000 ML 125 ML IV CONT (16:27)
[2021-09-24 16:34] LABS: Basophils Percent Auto 0.2 % (0.2-1.2); Eosinophils Absolute Auto 0.1 K/mm3 (0-0.3); Eosinophils Percent Auto 0.8 % (0-4.4); Hematocrit 30.6 % (37.0-47.0); Hemoglobin 10.2 g/dL (12.0-15.0); Immature Granulocyte Absolute 0.06 K/mm3 (0.00-0.031); Immature Granulocyte Percent A 0.5 % (0-0.5); Lymphocytes Absolute Auto 1.57 K/mm3 (0.9-3.2); Lymphocytes Percent Auto 12.4 % (18.3-44.2); Mean Corpuscular HGB Conc 33.3 g/dl (32-36); Mean Corpuscular Hemoglobin 30.1 pg (26-34); Mean Corpuscular Volume 90.3 fl (80-100); Mean Platelet Volume 11.8 fl (7.4-10.4); Monocytes Absolute Auto 0.7 K/mm3 (0.1-0.6); Monocytes Percent Auto 5.3 % (2.6-8.5); Neutrophils Absolute Auto 10.3 K/mm3 (1.3-6.7); Neutrophils Percent Auto 80.8 % (45.5-73.1); Platelet Count Result 247 k/mm3 (150-375); Red Blood Count 3.39 M/mm3 (4.2-5.4); Red Cell Distribution Width 13.7 % (11.5-14.5); White Blood Count 12.7 K/mm3 (4.5-10.0)
--- NOTE | 2021-09-24 18:38 | PC.NURSE ---
1500- Pt ordered chicken noodle soup and mashed potatoes. Ate 75% and tolerated well. Pt states she feels much better. 1555- Pt up, ambulating in the hallway. Tolerated well. 1605- Notified and updated Dr. Morales. Pt doing better. Pt and pt's daughter both don't feel comfortable with her going home this evening. Okay to stay and continue to monitor. CBC and 1L LR ordered. 1620- IV started and CBC drawn. 1656- Called Dr. Morales with CBC. No further orders.
[2021-09-24 19:30] VITALS: BP 135/70; PULSE 97; RESP 18; TEMP 37.3; O2SAT 100
[2021-09-25 07:00] VITALS: BP 152/81; PULSE 81; RESP 18; TEMP 37.6; O2SAT 100
[2021-09-25] MEDS: amLODIPine BESYLATE 5 MG TABLET 10 MG PO (09:32)
[2021-09-25] MEDS: SERTRALINE HCL 50 MG TABLET 100 MG PO (09:32)
== END 2021-09-25 14:15 | disposition home or self-care (01) | DRG 519 ==
LOC: ANHOB2 12:11
PROVIDERS: Surgery; Admitting Provider Obstetrics & Gynecology; Visit Provider Obstetrics & Gynecology
PROC: 0UT94ZZ Resection of Uterus, Percutaneous Endoscopic Approach (ICD-10-PCS; principal; 2021-09-21 07:30)
PROC: 0WQF0ZZ Repair Abdominal Wall, Open Approach (ICD-10-PCS; 2021-09-21 07:30)
DX: D25.9 Leiomyoma of uterus, unspecified (principal); K43.2 Incisional hernia without obstruction or gangrene; K91.72 Accidental puncture and laceration of a digestive system organ or structure during other procedure; F32.A Depression, unspecified; E11.9 Type 2 diabetes mellitus without complications; I10 Essential (primary) hypertension; Z85.43 Personal history of malignant neoplasm of ovary; N73.6 Female pelvic peritoneal adhesions (postinfective)
CPT/HCPCS: 36415; 82948; 85025; 88307; A9270; J0360; J0690; J1100; J1170; J1885; J2250; J2270; J2405; J2704; J3010; J7030; J7120; Q9968

== ENCOUNTER 2021-09-28 07:36 | Outpatient (CLI) | payer OTHER, SELFPAY ==
--- NOTE | ~2021-09-28 | XR_ITS ---
EXAMINATION: XR cystogram DATE: 09/28/2021 08:16 INDICATION: Bladder injury. TECHNIQUE: Water-soluble contrast was gravity-infused through the patient's Cardenas catheter. Multiple fluoroscopic images were obtained. Fluoroscopy exposure time was 0.3 minutes. The total number of anaya ges was 12. COMPARISON: None. FINDINGS: There is irregularity of the superior wall of bladder. There is no extraluminal leakage of contrast. No vesicoureteral reflux. IMPRESSION: 1. Irregularity of the superior wall of the bladder, likely inflammation from recent bladder injury. No extraluminal leakage of contrast. Reviewed, dictated and finalized at location A. IMPRESSION: 1. Irregularity of the superior wall of the bladder, likely inflammation from r ecent bladder injury. No extraluminal leakage of contrast.
== END 2021-09-28 07:37 | disposition home or self-care (01) ==
LOC: ANHIMG 07:40
PROVIDERS: Visit Provider Obstetrics & Gynecology
DX: S37.20XD Unspecified injury of bladder, subsequent encounter (principal); R93.41 Abnormal radiologic findings on diagnostic imaging of renal pelvis, ureter, or bladder
CPT/HCPCS: 51600; 74430; Q9967

== ENCOUNTER 2023-06-28 14:24 | Emergency (ER) | payer OTHER, SELFPAY ==
--- NOTE | ~2023-06-28 | XR_ITS ---
XR knee RT min 4V DATE: 06/28/2023 14:54 INDICATION: Fall in February TECHNIQUE: 4 views COMPARISON: None FINDINGS: There is no fracture or dislocation, periosteal reaction or bone destruction. Joint spaces are well preserved. No joint effusion. No chondrocalcinosis or radiopaque intraarticular loose bod y. IMPRESSION: No significant abnormality Reviewed, dictated and finalized at location L. ULATING PROCESS INSPECTOR IMPRESSION: No significant abnormality
[2023-06-28 14:28] VITALS: BP 156/80; PULSE 81; RESP 18; TEMP 36.6; O2SAT 98
--- NOTE | 2023-06-28 15:52 | ED.LOWEXIN ---
HPI - Extremity Injury (Lower) General Chief Complaint: Extremity Injury, Lower Stated Complaint: wound - right leg Time Seen by Provider: 06/28/23 14:34 History of Present Illness HPI Narrative: 58-year-old female presenting with right knee pain. Patient states that she injured it several months ago while dancing. She was seen at an outside hospital and given a knee brace. States that she has been using this especially at work which requires her to be on her feet a lot. States that over the last several weeks she has had worsening pain in her right knee. States that it feels swollen. No redness or warmth, no fevers or chills, no new injuries. No numbness or weakness. No further complaints. Related Data Home Medications Medication Instructions Recorded Confirmed amlodipine 10 mg tablet 10 mg PO DAILY 09/12/21 03/07/22 hydrochlorothiazide 25 mg tablet 25 mg PO DAILY 03/07/22 03/07/22 Allergies Allergy/AdvReac Type Severity Reaction Status Date / Time No Known Allergies Allergy Unknown Verified 06/28/23 14:39 Review of Systems Review of Systems: All systems reviewed & are unremarkable except as noted in HPI and below PMFSH Past Medical History Medical History Depression Diabetes Hypertension Ovarian cancer Surgical History Surgical History History of History of incisional hernia repair lap inc hernia repair w mesh 09/21/21 Family History Family History Father Heart disease Mother Kidney stones Other Hypertension Social History Social History Smoking status: Never smoker Alcohol intake: current Drinks per week: 28 Alcohol use details: BEER Substance use: current Substance use type: marijuana Other substance usage details: daily Living arrangements: with family Additional living arrangements comments: son lives with her Spiritual care concerns: No Exam Narrative: GENERAL: Well-appearing, in no acute distress, very pleasant cooperative HEAD: Normocephalic, atraumatic. EYES: PERRLA and EOMI. ENT: Mucous membranes moist. NECK: Supple. CHEST: No respiratory distress. HEART: Regular rate and rhythm. Normal peripheral pulses. EXTREMITIES: R knee flexion is limited 2/2 pain, no significant edema, tender along entire medial aspect of R knee, no erythema or warmth, no calf swelling, distal pulses 2+ SKIN: Warm, dry, no rash. NEURO: Alert and oriented x3. PSYCH: Normal mood and affect. Course Vital Signs Vital signs: Vital Signs Temperature 97.9 F 06/28/23 14:28 Pulse Rate 81 06/28/23 14:28 Respiratory Rate 18 06/28/23 14:28 Blood Pressure 156/80 H 06/28/23 14:28 Pulse Oximetry 98 06/28/23 14:28 Oxygen Delivery Room Air 06/28/23 14:28 Temperature 97.9 F 06/28/23 14:28 Pulse Rate 81 06/28/23 14:28 Respiratory Rate 18 06/28/23 14:28 Blood Pressure 156/80 H 06/28/23 14:28 Pulse Oximetry 98 06/28/23 14:28 Oxygen Delivery Room Air 06/28/23 14:28 MDM - Extremity Injury (Lower) MDM Narrative Medical decision making narrative: 58-year-old female presenting with right knee pain. Vitals are stable. Exam remarkable for the above. X-ray without acute abnormalities. Her exam is reassuring. I am not concerned for septic joint, DVT, large effusion. Patient really needs to follow-up with an orthopedic surgeon for further imaging and evaluation. Advised that she continue to wear the brace. Will send in for Tylenol and ibuprofen for pain control. Advised close Orthopedic in PCP follow-up. Appropriate return precautions given. Discharged in stable condition. Differential Diagnosis Differential diagnosis: Likely ankle sprain and strain, acute internal derangement o
[2023-06-28] MEDS: KETOROLAC 30 MG/ML VIAL (*BKC) IM (16:21)
[2023-06-28] MEDS: oxyCODONE/ACETAMINOPHEN (*CRX) 5-325 MG TABLET 1 TABLET PO (16:21)
== END 2023-06-28 16:36 | disposition home or self-care (01) ==
PROVIDERS: Emergency Provider Emergency Medicine
DX: M23.91 Unspecified internal derangement of right knee (principal); S89.91XD Unspecified injury of right lower leg, subsequent encounter; X58.XXXD Exposure to other specified factors, subsequent encounter; E11.9 Type 2 diabetes mellitus without complications; I10 Essential (primary) hypertension; Z85.43 Personal history of malignant neoplasm of ovary; Y93.41 Activity, dancing
CPT/HCPCS: 73564; 96372; 99283; A9270; J1885